=== PATIENT | female | born 1965 | race Caucasian/White ===

== ENCOUNTER → 2020-12-10 | Outpatient (CLI) | payer BC, OTHER ==
[~2020-12-10] MED LIST: AUGMENTIN 875-1 EACH PO; CELEBREX200 MG PO; FLAGYL500 MG PO
== END ==
LOC: KOH-I 11:01
DX: M47.22 Other spondylosis with radiculopathy, cervical region (principal)
CPT/HCPCS: 72050

== ENCOUNTER → 2020-12-18 | Outpatient (CLI) | payer BC | LOC: KOH-I 11:15 | DX: M50.123 Cervical disc disorder at C6-C7 level with radiculopathy (principal); M79.602 Pain in left arm; R20.2 Paresthesia of skin; R29.2 Abnormal reflex | CPT/HCPCS: 72141 ==

== ENCOUNTER → 2022-02-05 | Outpatient (CLI) | payer BC | LOC: LAB 11:11 | DX: R05.9 Cough, unspecified (principal); Z20.822 Contact with and (suspected) exposure to COVID-19 | CPT/HCPCS: U0002 ==